=== PATIENT | male | born 1945 | race Two or more races ===

== ENCOUNTER 2018-09-09 07:09 | Outpatient (CLI) | payer OTHER | END 2018-09-09 07:13 | disposition home or self-care (01) | LOC: SONOGRAMA 07:09 | DX: E04.1 Nontoxic single thyroid nodule (principal) ==

== ENCOUNTER 2024-03-26 07:51 | Outpatient (CLI) | payer OTHER | END 2024-03-26 07:55 | disposition home or self-care (01) | LOC: SONOGRAMA 07:51 | PROVIDERS: ATTEND Pathology Anatomic Pathology & Clinical Pathology | DX: D34 Benign neoplasm of thyroid gland (principal); E07.89 Other specified disorders of thyroid; E04.2 Nontoxic multinodular goiter ==